=== PATIENT | female | born 1975 | race Caucasian/White ===

== ENCOUNTER → 2020-07-23 10:53 | Outpatient (POV) | payer SELFPAY | PROVIDERS: Visit Provider Dermatology | DX: Z00.00 Encounter for general adult medical examination without abnormal findings (principal) ==

== ENCOUNTER → 2020-11-05 14:25 | Outpatient (POV) | payer SELFPAY | PROVIDERS: Visit Provider Dermatology | DX: Z00.00 Encounter for general adult medical examination without abnormal findings (principal) ==

== ENCOUNTER 2021-07-29 15:30 | Emergency (ER) | payer OTHER, SELFPAY ==
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
[2021-07-29 15:32] VITALS: BP 165/109; PULSE 68; RESP 20; TEMP 36.9; O2SAT 98; BMI 46.5
--- NOTE | 2021-07-29 15:32 | PC.NURSE ---
Attempted to place pt in c-collar due to her neck pain, pt refused at this time stating she feels like it is choking her. Pt instructed on the benefits of the c-collar with neck pain. Pt refused after instruction. MD díaz
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
--- NOTE | 2021-07-29 17:03 | PC.NURSE ---
ED MD speaking with patient
[2021-07-29 17:17] VITALS: BP 150/99; PULSE 70; RESP 20; TEMP 36.9; O2SAT 98
== END 2021-07-29 17:18 | disposition home or self-care (01) ==
PROVIDERS: Emergency Provider Emergency Medicine; PCP Family Medicine
DX: S13.4XXA Sprain of ligaments of cervical spine, initial encounter (principal); S50.12XA Contusion of left forearm, initial encounter; V43.51XA Car driver injured in collision with sport utility vehicle in traffic accident, initial encounter
CPT/HCPCS: 72040; 73030; 73080; 73090; 99285

== ENCOUNTER → 2021-08-25 13:19 | Outpatient (CLI) | payer OTHER, SELFPAY ==
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
== END ==
PROVIDERS: PCP Family Medicine; Visit Provider Family Medicine
DX: M25.512 Pain in left shoulder (principal); M25.562 Pain in left knee; V89.2XXA Person injured in unspecified motor-vehicle accident, traffic, initial encounter
CPT/HCPCS: 73721